=== PATIENT | female | born 1945 | race Caucasian/White ===

== ENCOUNTER → 2017-02-28 | Outpatient (CLI) | payer MEDICARE, BC ==
[~2017-02-28] MED LIST: AUGMENTIN 875 M1 TAB PO; LEVOTHYROXINE PO; NEXIUM PO
== END ==
LOC: MC.RAD 13:27
DX: Z12.31 Encounter for screening mammogram for malignant neoplasm of breast (principal)

== ENCOUNTER → 2018-03-26 | Outpatient (CLI) | payer MEDICARE, OTHER | LOC: MC.RAD 14:14 | DX: Z12.31 Encounter for screening mammogram for malignant neoplasm of breast (principal) ==

== ENCOUNTER → 2019-04-18 | Outpatient (CLI) | payer MEDICARE, OTHER | LOC: MC.RAD 16:03 | DX: Z12.31 Encounter for screening mammogram for malignant neoplasm of breast (principal) ==

== ENCOUNTER → 2020-06-16 | Outpatient (CLI) | payer MEDICARE, OTHER | LOC: MC.RAD 11:38 | DX: Z12.31 Encounter for screening mammogram for malignant neoplasm of breast (principal) ==

== ENCOUNTER 2021-06-11 22:40 | Inpatient (IN) | payer MEDICARE, OTHER ==
[~2021-06-11] VITALS: Ht 165.1 cm; Wt 72.7 kg
[2021-06-12] VITALS (11 sets, daily range): BP systolic 135–155; BP diastolic 57–91; PULSE 59–99; TEMP 97.6–99.7
[2021-06-12 00:37] LABS: BASO # 0.1 (0.0-0.2); BASO % 0.4 % (0.0-2.0); EOS # 0.1 (0.0-0.7); EOS % 0.4 % (0-4.0); GRAN # 14.2 (1.4-6.5); GRAN % 89.3 % (42.2-75.2); HEMATOCRIT 39.5 % (37.0-47.0); HEMOGLOBIN 13.3 g/dl (12.5-16.0); LYMPH # 0.9 (1.2-3.4); LYMPH % 5.5 % (20.0-51.0); MEAN CELL VOLUME 96 fl (80.0-100.0); MEAN CORPUSCULAR HEMOGLOBIN 32 pg (27.0-31.0); MEAN CORPUSCULAR HGB CONC 34 g/dl (33.0-37.0); MEAN PLATELET VOLUME 9.7 fl (7.4-10.4); MONO # 0.7 (0.1-0.6); MONO % 4.1 % (1.7-9.3); PLATELET COUNT 385 K/mm3 (130-400); RED BLOOD COUNT 4.12 M/mm3 (4.10-5.30); REDCELL DISTRIBUTION WIDTH-CV 12.7 % (11.5-14.5)
[2021-06-12 00:49] LABS: ALANINE AMINOTRANSFERASE 69 U/L (4-34); ALBUMIN 4.7 gm/dL (3.5-5.0); ALKALINE PHOSPHATASE 122 U/L (50-136); ANION GAP 13 mmol/L (7-16); AST,SGOT 45 U/L (15-37); BILIRUBIN,TOTAL 0.9 mg/dL (0.0-1.0); BLOOD UREA NITROGEN 21 mg/dL (7-17); CALCIUM 9.8 mg/dL (8.4-10.2); CARBON DIOXIDE 25 mmol/L (22-30); CHLORIDE 97 mmol/L (98-107); CREATININE, serum 1.16 (0.52-1.25); GLUCOSE 132 mg/dL (74-106); SODIUM 135 mmol/L (137-145); TOTAL PROTEIN 8.7 gm/dL (6.4-8.2)
[2021-06-12 01:02] LABS: TROPONIN-I < 0.012 ng/mL (0.000-0.035)
[2021-06-12 01:16] LABS: POTASSIUM 4.4 mmol/L (3.4-5.0)
[2021-06-12 01:18] LABS: LIPASE 88 U/L (23-300)
[2021-06-12 03:40] LABS: INR 1.2 (0.8-3.0); PARTIAL THROMBOPLASTIN TIME 28.9 SECONDS (26.0-37.0); PROTHROMBIN TIME 13.4 SECONDS (9.7-12.8)
[2021-06-12] MEDS ORDERED: LIPITOR20 MG PO (04:24)
[2021-06-12] MEDS ORDERED: HCTZ12.5TAB PO (04:24)
[2021-06-12] MEDS ORDERED: PRINIVIL40 MG PO (04:24)
--- NOTE | 2021-06-12 06:00 | NUR ---
PATIENT ARRIVED FROM ER, ALERT AND ORIENTED X4. ADMITTED FOR ABDOMINAL PAIN IN THE LAST WEEK. LAST NIGHT STARTED EPISODES OF EXCESSIVE BURPING. UPPON ARRIVAL TO UNIT PATIENT HAD AN EPISODE OF DRY HIVING AND PAIN. ZOFRAN AND MORPHINE GIVEN. IVF LR@125ML/HR STARTED. ORIENTED TO ROOM, CALL LIGHT IN REACH. VSS. WILL CONTINUE TO MONITOR.
--- NOTE | 2021-06-12 10:17 | NUR ---
Patient was doing ok most the morning. She has been getting up in the room without issues. No complaints of nausea. Her pain just started to increase, morhphine given for pain rating at 7 on a 0-10 scale. Patient stated feeling weak and hot but cold. Explained that her temp started to go up again. Patient is going to surgery at this time. Consent signed and on the chart. Patient is going to surgery via the bed at this time.
--- NOTE | 2021-06-12 15:24 | NUR ---
Patient moaning and groaning in pain. Restless in bed. Sitting at the edge of the bed without any relief. Spoke to primary care nurse. Morphine given PRN per orders. Iv to LAC out. Iv to Rfa intact.
--- NOTE | 2021-06-12 16:00 | NUR ---
Patient got back from surgery around 1300. She was having pain when arrived to floor but fell asleep and stated she better after about 30 mins. Some nausea at times. Patient got up to the bathroom to try to void. Her pain shot up to 6-8 on a 0-10 scale. Pain medications that were ordered given without any relief. Spoke with Dr Reese about patients pain, dilauded ordered and given. Patient stated the morphine does nothing for her pain. No other changes at this time. Will continue to monitor. Call light within reach.
--- NOTE | 2021-06-12 18:00 | NUR ---
Patient has been having increased pain on and off since surgery. When her pain is down to a 1 or 2, she is able to sleep and rest comfortably. She stated the dilauded has been helping the most. She is tolerating cranberry juice without nausea. She continues to be on oxygen. When she falls asleep her O2 drops to 88-92%. When her pain jumps up she gets diaphoretic and gets nauseated. No temperature noted when this happens. Her Vitals have been stable. No other changes at this time. Her IV got pulled out, new IV started to right hand. Call light within reach.
--- NOTE | 2021-06-12 19:05 | NUR ---
PATIENT ASSISTED TO BR GAIT STEADY. C/O 08/15 ABDOMINAL PAIN. ABDOMINAL INCISIONS WITH BANDAIGS INTACT. HYPOACTIVE BSX 4Q. DENIES NAUSEA/VOMITING AT THIS TIME. TOLERATING CLEAR LIQUIDS DIET. WILL CONTINUE TO MONITOR.
[2021-06-13] VITALS (7 sets, daily range): BP systolic 119–156; BP diastolic 56–76; PULSE 62–90; TEMP 97.6–99.3
[2021-06-13 09:30] LABS: ALBUMIN 3.3 gm/dL (3.5-5.0); BILIRUBIN,TOTAL 1.5 mg/dL (0.0-1.0); CALCIUM 8.8 mg/dL (8.4-10.2); CREATININE, serum 1.04 (0.52-1.25); POTASSIUM 4.2 mmol/L (3.4-5.0); TOTAL PROTEIN 6.4 gm/dL (6.4-8.2)
[2021-06-13 09:58] LABS: BASO # 0.1 (0.0-0.2); BASO % 0.4 % (0.0-2.0); EOS % 0.1 % (0-4.0); GRAN # 13.4 (1.4-6.5); HEMOGLOBIN 11.7 g/dl (12.5-16.0); LYMPH # 0.4 (1.2-3.4); LYMPH % 2.9 % (20.0-51.0); MEAN CELL VOLUME 96 fl (80.0-100.0); MEAN CORPUSCULAR HEMOGLOBIN 32 pg (27.0-31.0); MEAN CORPUSCULAR HGB CONC 33 g/dl (33.0-37.0); MEAN PLATELET VOLUME 9.5 fl (7.4-10.4); MONO # 0.9 (0.1-0.6); MONO % 6.3 % (1.7-9.3); PLATELET COUNT 365 K/mm3 (130-400); REDCELL DISTRIBUTION WIDTH-CV 12.9 % (11.5-14.5)
[2021-06-13 09:59] LABS: HEMATOCRIT 35.4 % (37.0-47.0)
--- NOTE | 2021-06-13 10:39 | NUR ---
Plan is to return home wih and son are care support. Son is Robel . Eagle who has Leukemia. Patient reports that she is usually independent. PCP is Jeremy Murray, Dr. Torres, Dr. Reese. Dr. Lyn, patient indicated that [facility]. Patient indicated that she resides in [place] and believes that she will not need any Home healths services. Denies the need for any DME. WIll continue to follow for care.
--- NOTE | 2021-06-13 18:00 | NUR ---
Patient is feeling much better this evening. Her pain has been better controlled this afternoon. She is NPO after midnight. She is aware. Let her know that her ERCP won't be until 1300 tomorrow afternoon. She has been eating and drinking more, capped her fluids as ordered. She showered this afternoon and stated that seem to help with the pain. No other changes at this time. Call light within reach.
--- NOTE | 2021-06-13 21:02 | NUR ---
PT IN BED. HAS SL TO RT HAND AND RT FOREARM. CONNECTED IV ANTIBIOTIC TO RT FOREARM, INFUSING WITHOUT PROBLEM. PT REPORTS PAIN TO ABD, MEDICATED WITH PERCOCET 1 TAB PO AT THIS TIME WITH SCHEDULED PO MED. ABD WITH LAP SITES X3, BANDAIDS D/I. INDEPENDENT IN ROOM.
[2021-06-14] VITALS (7 sets, daily range): BP systolic 113–169; BP diastolic 57–88; PULSE 70–80; TEMP 97.8–98.7
--- NOTE | 2021-06-14 01:00 | NUR ---
IV ANTIBIOTIC COMPLETE. PT RESTING WELL.
--- NOTE | 2021-06-14 03:42 | NUR ---
PT COMPLAINS OF PAIN TO ABD, PERCOCET 1 TAB GIVEN.
--- NOTE | 2021-06-14 04:16 | NUR ---
PAIN PERSISTS, DILAUDID 0.5MG IVP GIVEN AT THIS TIME.
--- NOTE | 2021-06-14 05:00 | NUR ---
PT REPORTS PAIN HAS LESSENED AFTER DILAUDID, IV ANTIBIOTIC INFUSING TO RT HAND SL, DC'D RFA SL D/T LEAKING.
[2021-06-14 06:58] LABS: BASO # 0.1 (0.0-0.2); BASO % 0.5 % (0.0-2.0); EOS # 0.2 (0.0-0.7); EOS % 1.1 % (0-4.0); GRAN # 11.7 (1.4-6.5); GRAN % 85.7 % (42.2-75.2); HEMATOCRIT 31.4 % (37.0-47.0); HEMOGLOBIN 10.4 g/dl (12.5-16.0); LYMPH # 0.7 (1.2-3.4); LYMPH % 4.9 % (20.0-51.0); MEAN CELL VOLUME 96 fl (80.0-100.0); MEAN CORPUSCULAR HEMOGLOBIN 32 pg (27.0-31.0); MEAN CORPUSCULAR HGB CONC 33 g/dl (33.0-37.0); MEAN PLATELET VOLUME 9.8 fl (7.4-10.4); MONO % 7.4 % (1.7-9.3); PLATELET COUNT 323 K/mm3 (130-400); RED BLOOD COUNT 3.27 M/mm3 (4.10-5.30); REDCELL DISTRIBUTION WIDTH-CV 12.9 % (11.5-14.5)
[2021-06-14 07:08] LABS: BILIRUBIN,TOTAL 1.7 mg/dL (0.0-1.0); CALCIUM 8.6 mg/dL (8.4-10.2); CREATININE, serum 1.16 (0.52-1.25); POTASSIUM 3.6 mmol/L (3.4-5.0)
--- NOTE | 2021-06-14 09:30 | NUR ---
PATIENT IS ALERT AND ORIENTED X4. PATIENT DENIES PAIN AT THIS TIME. 3 LAP SITES ARE CLEAN, DRY, AND INTACT. PATIENT NOW REPORTS HAVING GAS. PATIENT HAS INT IV TO RIGHT HAND. PATIENT IS SCHEDULED FOR ERCP TODAY AND IS NPO AND WILL DISCUSS DISCHARGE AFTER THOSE RESULTS. PATIENT HAS SCD'S TO BILATERAL LOWER EXTREMITIES. PATIENT DENIES FURTHER NEEDS AT THIS TIME. HEAD TO TOE ASSESSMENT COMPLETE. CALL LIGHT WITHIN REACH.
--- NOTE | 2021-06-14 12:43 | NUR ---
PATIENT GOING DOWN TO ENDO FOR ERCP. CONSENT ON CHART. PATIENT SHOWERED AND HAS CLEAN GOWN ON. IV FLUIDS INFUSING VIA GRAVITY. PATIENT OFF FLOOR.
--- NOTE | 2021-06-14 14:10 | NUR ---
PATIENT BACK IN ROOM AFTER ERCP AND HAVING MOD PAIN POST OP. TWO STONES WERE EXTRACTED. PATIENT PASSING GAS WHEN AMBULATED TO BED. PATIENT REPORTS FENTANYL FOR PAIN IN PACU MADE HER FEEL WEAK/DIZZY. PATIENT RESTING IN BED. NOTED ELEVATED B/P IN THE 160'S SYSTOLIC LIKELY DUE TO PAIN. ALL OTHER VSS. PATIENT RESTING UP IN BED. WILL MONITOR
--- NOTE | 2021-06-14 16:20 | NUR ---
PATIENT'S RIGHT HAND IV PUFFY AND PATIENT C/O DISCOMFORT. DC'D IV SITE, COVERED WITH GAUZE & TEGA & APPLIED WARM BLANKET. RESTARTED IV SITE ON FIRST ATTEMPT INTO LEFT WRIST WITH 22 GAUZE. IV TO INT.
--- NOTE | 2021-06-14 19:51 | NUR ---
PT MOANING IN PAIN, RT ABD MOSTLY. MEDICATED WITH DILAUDID 0.5MG IVP AT THIS TIME.
--- NOTE | 2021-06-14 21:01 | NUR ---
TAKES HS MEDS INCLUDING PERCOCET 1 TAB PO FOR ABD PAIN. ABD DISTENDED WITH HYPOACTIVE BS.
--- NOTE | 2021-06-14 21:08 | NUR ---
AMBULATED IN HALLWAY WITH NURSE. HAVING DIFFUSE ABD CRAMPING, NO FLATUS.
[2021-06-15 00:08] VITALS: BP 110/60; PULSE 73; TEMP 98.2
--- NOTE | 2021-06-15 01:10 | NUR ---
IV ANTIBIOTIC COMPLETE. PERCOCET 1 TAB PO FOR ABDOMINAL PAIN GIVEN.
--- NOTE | 2021-06-15 01:10 | NUR ---
PT SITTING ON TOILET, PASSES SMALL AMOUNT OF GAS, HAVING TROUBLE URINATING. WILL BLADDER SCAN WHEN BACK TO BED.
--- NOTE | 2021-06-15 01:30 | NUR ---
PT BLADDER SCANNED FOR 150CC. RECONNECTED TO IVF PT HASN'T BEEN HAVING GOOD ORAL INTAKE.
[2021-06-15 04:35] VITALS: BP 113/60; PULSE 68; TEMP 97.4
--- NOTE | 2021-06-15 05:00 | NUR ---
PLACED IVF ON HOLD, IV ANTIBIOTIC INFUSING WITHOUT PROBLEM TO LEFT WRIST. MEDICATED WITH PERCOCET 1 TAB PO AT THIS TIME FOR ABD PAIN.
[2021-06-15 07:11] LABS: BASO % 0.1 % (0.0-2.0); EOS # 0.3 (0.0-0.7); EOS % 1.8 % (0-4.0); GRAN % 88.1 % (42.2-75.2); LYMPH # 0.5 (1.2-3.4); LYMPH % 3.1 % (20.0-51.0); MEAN CELL VOLUME 96 fl (80.0-100.0); MEAN CORPUSCULAR HEMOGLOBIN 32 pg (27.0-31.0); MEAN CORPUSCULAR HGB CONC 33 g/dl (33.0-37.0); MEAN PLATELET VOLUME 9.6 fl (7.4-10.4); MONO % 6.4 % (1.7-9.3); PLATELET COUNT 390 K/mm3 (130-400); RED BLOOD COUNT 3.44 M/mm3 (4.10-5.30); REDCELL DISTRIBUTION WIDTH-CV 12.7 % (11.5-14.5)
[2021-06-15 07:12] LABS: HEMATOCRIT 32.9 % (37.0-47.0)
[2021-06-15 07:25] LABS: ALBUMIN 2.9 gm/dL (3.5-5.0); BILIRUBIN,TOTAL 1.2 mg/dL (0.0-1.0); CALCIUM 8.6 mg/dL (8.4-10.2); CREATININE, serum 1.16 (0.52-1.25); POTASSIUM 3.5 mmol/L (3.4-5.0)
--- NOTE | 2021-06-15 08:15 | NUR ---
PATIENT SITTING UP IN BED AWAITING BREAKFAST. PATIENT ALERT AND ORIENTED X4. PATIENT HAS IV TO LEFT WRIST WITH NO REDNESS, DRAINAGE, OR SWELLING. PATIENT HAS 3 LAP SITES TO ABDOMEN WITH BANDAIDS. PATIENT WENT ON WALK AROUND THE UNIT AND STATED IT MADE HER FEEL BETTER. PATIENT HAD STEADY GAIT THROUGHOUT WALK. PATIENT DENIES FURTHER NEEDS AT THIS TIME. POSSIBLE DISCHARGE TODAY. HEAD TO TOE ASSESSMENT COMPLETE. NO FURTHER NEEDS AT THIS TIME.
[2021-06-15 08:16] VITALS: BP 142/54; PULSE 88; TEMP 98
--- NOTE | 2021-06-15 10:11 | NUR ---
Initial visit; Patient thanked Document Processing Specialist for looking in on her and offering God's blessings and to keep her in Document Processing Specialist's prayers.
[2021-06-15 11:55] VITALS: BP 134/65; PULSE 81; TEMP 97.7
[2021-06-15 16:59] VITALS: BP 117/62; PULSE 71; TEMP 98.2
[2021-06-15 19:41] VITALS: BP 139/60; PULSE 82; TEMP 98.2
--- NOTE | 2021-06-15 20:45 | NUR ---
Pt. sitting up in bed. Pt. is A&OX3, assessment complete. IV to lt. wrist patent, IV fluids infusing per orders. Pt. reports pain at a 5 on pain scale, will give pain meds per orders. Pt. denies further needs, call light within reach.
[2021-06-16 00:11] VITALS: BP 104/54; PULSE 73; TEMP 98.5
[2021-06-16 04:48] VITALS: BP 125/59; PULSE 79; TEMP 98.7
[2021-06-16 06:55] LABS: BASO % 0.2 % (0.0-2.0); EOS # 0.8 (0.0-0.7); EOS % 6.2 % (0-4.0); GRAN # 10.4 (1.4-6.5); GRAN % 81.3 % (42.2-75.2); LYMPH # 0.4 (1.2-3.4); LYMPH % 3.3 % (20.0-51.0); MEAN CELL VOLUME 94 fl (80.0-100.0); MEAN CORPUSCULAR HGB CONC 34 g/dl (33.0-37.0); MEAN PLATELET VOLUME 10.2 fl (7.4-10.4); MONO # 1.1 (0.1-0.6); MONO % 8.5 % (1.7-9.3); PLATELET COUNT 361 K/mm3 (130-400); RED BLOOD COUNT 2.91 M/mm3 (4.10-5.30); REDCELL DISTRIBUTION WIDTH-CV 12.7 % (11.5-14.5)
[2021-06-16 07:04] LABS: CALCIUM 8.4 mg/dL (8.4-10.2); CREATININE, serum 1.25 (0.52-1.25); HEMATOCRIT 27.2 % (37.0-47.0); HEMOGLOBIN 9.3 g/dl (12.5-16.0); MEAN CORPUSCULAR HEMOGLOBIN 32 pg (27.0-31.0); POTASSIUM 3.1 mmol/L (3.4-5.0)
[2021-06-16] MEDS ORDERED: PERCOCET 325 MG1 TA2 PO (08:28)
[2021-06-16 09:01] VITALS: BP 118/57; PULSE 69; TEMP 98
--- NOTE | 2021-06-16 09:35 | NUR ---
Patient alert and oriented, answers questions appropriately. See assessment. Abdomen soft, non tender, non distended. Bowel sounds active x4 quads. +Flatus. +Bowel movement. Lap sites to abdomen with edges well approximated, no redness or drainage noted. Tolerating diet well. Post op exercises reviewed. No c/o at this time.
[2021-06-16 11:53] VITALS: BP 141/68; PULSE 92; TEMP 97.7
--- NOTE | 2021-06-16 12:56 | NUR ---
Discharge instructions reviewed with patient, verbalized understanding. Discharged ambulatory to auto/home with spouse at 1245.
== END 2021-06-16 12:45 | disposition home or self-care (01) | DRG 854 ==
LOC: COL.ER 22:40 → MEDICAL 06-12 02:58 → SURG 06-12 04:19
PROVIDERS: Emergency Medicine; ADMIT Surgery
PROC: BF121ZZ Fluoroscopy of Gallbladder using Low Osmolar Contrast (ICD-10-PCS; 2021-06-12)
PROC: 0FT44ZZ Resection of Gallbladder, Percutaneous Endoscopic Approach (ICD-10-PCS; principal; 2021-06-12 10:00)
PROC: 0FC98ZZ Extirpation of Matter from Common Bile Duct, Via Natural or Artificial Opening Endoscopic (ICD-10-PCS; 2021-06-14)
PROC: 0FCD8ZZ Extirpation of Matter from Pancreatic Duct, Via Natural or Artificial Opening Endoscopic (ICD-10-PCS; 2021-06-14)
DX: A41.89 Other specified sepsis (principal); K80.00 Calculus of gallbladder with acute cholecystitis without obstruction; E78.00 Pure hypercholesterolemia, unspecified; I10 Essential (primary) hypertension; Z90.710 Acquired absence of both cervix and uterus; Z20.822 Contact with and (suspected) exposure to COVID-19; E03.9 Hypothyroidism, unspecified; K80.50 Calculus of bile duct without cholangitis or cholecystitis without obstruction
CPT/HCPCS: OP; C1769; J0690; J1100; J1170; J2270; J2405; J2543; J2704; J3010; J7030; J7120; Q9967

== ENCOUNTER → 2021-07-09 | Outpatient (CLI) | payer MEDICARE, OTHER ==
[~2021-07-09] MED LIST changes: +HCTZ12.5TAB PO; +LIPITOR20 MG PO; +PERCOCET 325 MG1 TA2 PO; +PRINIVIL40 MG PO
== END ==
LOC: MC.RAD 14:00
DX: Z12.31 Encounter for screening mammogram for malignant neoplasm of breast (principal)

== ENCOUNTER → 2022-07-20 | Outpatient (CLI) | payer MEDICARE, OTHER | LOC: MC.RAD 13:08 | DX: Z12.31 Encounter for screening mammogram for malignant neoplasm of breast (principal) ==

== ENCOUNTER → 2023-08-31 | Outpatient (CLI) | payer MEDICARE, OTHER | LOC: CANSCHCLI → MC.RAD 16:04 | DX: Z12.31 Encounter for screening mammogram for malignant neoplasm of breast (principal) ==

== ENCOUNTER → 2024-09-03 | Outpatient (CLI) | payer MEDICARE | LOC: MC.RAD 11:05 | DX: Z12.31 Encounter for screening mammogram for malignant neoplasm of breast (principal) ==